=== PATIENT | female | born 1995 | race American Indian/Alaskan Native ===

== ENCOUNTER 2019-06-02 12:06 | Inpatient (IN) | payer MEDICAID ==
[2019-06-02] MEDS ORDERED: MINERAL OIL PO PRN ×2 (12:56→22:00)
[2019-06-02] MEDS ORDERED: AMPICILLIN/NS 2 GM/100 ML 2 GM/100 ML BAG IV ONE (12:56)
[2019-06-02] MEDS ORDERED: ZOFRAN IV PRN ×2 (12:56→20:37)
[2019-06-02] MEDS ORDERED: STADOL IV PRN (12:56)
[2019-06-02] MEDS ORDERED: BRETHINE SUB-Q PRN ×2 (12:56→14:06)
[2019-06-02] MEDS ORDERED: XYLOCAINE 2% INFILTRATI ONE ×2 (12:56→14:06)
[2019-06-02] MEDS ORDERED: NARCAN 0.4 MG/1 ML IV PRN (12:56)
[2019-06-02] MEDS ORDERED: PHENERGAN PO PRN ×2 (12:56→20:37)
[2019-06-02] MEDS ORDERED: BRETHINE IVP PRN ×2 (12:56→14:06)
[2019-06-02] MEDS ORDERED: SUBLIMAZE IV PRN (12:56)
[2019-06-02] MEDS ORDERED: PITOCin/NS 30 UNIT/500ML 30 UNITS/500 ML BAG IV SCH ×4 (13:00→15:00)
[2019-06-02] MEDS ORDERED: PITOCin/NS 20 UNIT/1000ML DRIP 20 UNITS/1,000 ML BAG IV SCH ×3 (13:00→21:00)
[2019-06-02] MEDS ORDERED: LACTATED RINGERS 1,000 ML IV SCH ×2 (13:00→15:00)
--- NOTE | 2019-06-02 13:05 | History and Physical Report ---
History of Present Illness Date of examination: 06/02/19 Date of admission: 06/02/19 12:06 Chief complaint: grossly rupture this am History of present illness: This is a 23 yo at 39 weeks EDC 06/08/19 here for grossly rupture of fluid clear. She is apatietn of [employer] with hx of b/l hearing aids, asthma and glucose intolerance. Past History Past Medical History: other (Bilateral hearing aids ) Family/Genetic History: hypertension, cancer (breast) - Obstetrical History Expected Date of Delivery: 06/08/19 Actual Gestation: 39 Week(s) 1 Day(s) : 2 Para: 1 Hx # Term Pregnancies: 1 Number of Pregnancies: 0 Spontaneous Abortions: 0 Induced : 0 Number of Living Children: 1 Review of Systems All systems: negative - Vital Signs Vital signs: Vital Signs Pulse BP 80 113/77 06/02/19 12:39 06/02/19 12:39 Temp Pulse Resp BP Pulse Ox 80 113/77 06/02/19 12:39 06/02/19 12:39 - Physical Exam Breasts: Positive: normal Cardiovascular: Regular rate, Normal S1 Lungs: Positive: Clear to auscultation, Normal air movement Abdomen: Positive: normal appearance, soft, normal bowel sounds. Negative: distention, tenderness, guarding Genitourinary (Female): Positive: normal external genitalia, normal perenium Vagina: Positive: normal moisture Uterus: Positive: normal size Anus/Rectum: Positive: normal perianal skin Extremities: Positive: normal Deep Tendon Reflex Grade: Normal +2 - Obstetrical FHR: category 1 Cervical Dilatation: 3 Cervical Effacement Percentage: 70 station: -3 Uterine Contraction Pattern: Irregular Uterine Tone Measurement Phase: Contraction Uterine Contraction Intensity: Mild Results All other labs normal. Assessment and Plan A/P IUP 39 weeks Prom clear GBS +- amp initiated will begin pitocin augmentation after second dose of amp
[2019-06-02 14:05] LABS: Hematocrit 40.2 % (30.3-42.9); Hemoglobin 13.9 gm/dl (10.1-14.3); Mean Corpuscular HGB Conc 35 % (30-34); Mean Corpuscular Volume 85 fl (79-97); Platelet Count 224 K/mm3 (140-440); Red Blood Count 4.74 M/mm3 (3.65-5.03); Red Cell Distribution Width 13.5 % (13.2-15.2)
[2019-06-02] MEDS ORDERED: AMPICILLIN/NS 1 GM/50 ML 1 GM/50 ML BAG IV SCH (17:00)
--- NOTE | 2019-06-02 20:04 | Anesthesia Consultation ---
Anesthesia Consult and Med Hx Date of service: 06/02/19 - Airway Anesthetic Teeth Evaluation: Good ROM Head & Neck: Adequate Mental/Hyoid Distance: Adequate Mallampati Class: Class II Intubation Access Assessment: Probably Good - Pulmonary Exam CTA: Yes - Cardiac Exam Cardiac Exam: RRR - Pre-Operative Health Status ASA Pre-Surgery Classification: ASA2 Proposed Anesthetic Plan: Epidural - Pulmonary Hx Smoking: No Hx Asthma: Yes Hx Respiratory Symptoms: No SOB: No COPD: No Home Oxygen Therapy: No Hx Pneumonia: No Hx Sleep Apnea: No - Cardiovascular System Hx Hypertension: No Hx Coronary Artery Disease: No Hx Heart Attack/AMI: No Hx Angina: No Hx Percutaneous Transluminal Coronary Angioplasty (PTCA): No Hx Cardia Arrhythmia: No Hx Pacemaker: No Hx Internal Defibrillator: No Hx Valvular Heart Disease: No Hx Heart Murmur: No Hx Peripheral Vascular Disease: No - Central Nervous System Hx Seizures: No CVA: No Hx Back Pain: No Hx Psychiatric Problems: No - Gastrointestinal Hx Ulcer: No Hx Gastroesophageal Reflux Disease: Yes - Endocrine Hx Renal Disease: No Hx End Stage Renal Disease: No Hx Cirrhosis: No Hx Liver Disease: No Hx Insulin Dependent Diabetes: No Hx Non-Insulin Dependent Diabetes: No Hx Thyroid Disease: No Hx Hypothyroidism: No Hx Hyperthyroidism: No - Hematic Hx Anemia: No Hx Sickle Cell Disease: No - Other Systems Hx Alcohol Use: No Hx Substance Use: No Hx Cancer: No Hx Obesity: No - Additional Comments Anesthesia Medical History Comments: [place] Hearing add left ear
[2019-06-02] MEDS ORDERED: PHENERGAN PR PRN (20:37)
[2019-06-02] MEDS ORDERED: MILK OF MAGNESIA PO PRN (20:37)
[2019-06-02] MEDS ORDERED: TYLENOL PO PRN (20:37)
[2019-06-02] MEDS ORDERED: PERCOCET 5/325 PO PRN (20:37)
[2019-06-02] MEDS ORDERED: DULCOLAX PR PRN (20:37)
[2019-06-02] MEDS ORDERED: TUCKS PAD TP PRN (20:37)
[2019-06-02] MEDS ORDERED: LANSINOH TP PRN (20:37)
[2019-06-02] MEDS ORDERED: BENADRYL PO PRN (20:37)
[2019-06-02] MEDS ORDERED: TORADOL IV PRN (20:37)
--- NOTE | 2019-06-02 20:41 | Procedure Note ---
OB Delivery Note - Delivery Date of Delivery: 06/02/19 Surgeon: COY GIMENEZ Estimated blood loss: 100cc - Vaginal Delivery presentation: vertex Delivery position: OA Intrapartum events: precipitous labor- <3hr Delivery augmentation: pitocin Route of delivery: Delivery placenta: spontaneous Delivery cord: 3 umbilical vessels Episiotomy: none Delivery laceration: none Anesthesia: none Delivery comments: Patient was noted to be c/c/+2 Patient commenced to pushing a viable female at 2001 with apgars 8 and 9. . Placenta delivered intact with three vessel cord at 2010. No lacerations noted. The weight of the baby 5 pounds 15 oz. EBL 100 cc. Patient tolerated procedure well. - Infant A at 1 minute: 8 at 5 minutes: 9 Infant Gender: Female (5 pounds 14 oz)
[2019-06-02] MEDS ORDERED: SODIUM CHLORIDE FLUSH SYRINGE 10 ML IV NR (21:00)
[2019-06-02] MEDS: IBUPROFEN PO SCH (21:30)
[2019-06-02] MEDS: COLACE PO SCH (22:00)
[2019-06-03] MEDS: NORCO 5/325 PO PRN ×3 (03:00→16:01)
[2019-06-03] MEDS ORDERED: M-M-R II VACCINE SUB-Q ONE (06:00)
[2019-06-03] MEDS ORDERED: BOOSTRIX IM ONE (06:00)
[2019-06-03] MEDS: IBUPROFEN PO SCH ×3 (06:00→20:11)
--- NOTE | 2019-06-03 09:29 | Progress Note ---
Assessment and Plan A/P PPD1 doing well VSS, HGB stable d/c home tomorrow Subjective - Subjective Date of service: 06/03/19 Principal diagnosis: Interval history: This is a 23 yo at 39 weeks EDC 06/08/19 here for grossly rupture of fluid clear. She is apatietn of [employer] with hx of b/l hearing aids, asthma and glucose intolerance. Patient reports: appetite normal, voiding normally, pain well controlled, flatus, ambulating normally [place]: doing well Objective - Vital Signs Latest vital signs: Vital Signs Temp Pulse Resp BP Pulse Ox 06/03/19 08:19 98.6 F 12 123/91 06/03/19 06:00 18 06/03/19 04:49 97.8 F 69 20 126/71 99 06/03/19 04:00 18 06/03/19 03:00 18 06/02/19 22:48 97.9 F 75 20 132/85 99 06/02/19 21:51 80 132/74 06/02/19 21:36 76 129/72 06/02/19 21:21 84 126/79 06/02/19 21:20 59 L 74 L 06/02/19 21:07 82 118/78 06/02/19 20:42 82 100 06/02/19 20:37 91 H 99 06/02/19 20:32 87 100 06/02/19 20:27 88 99 06/02/19 20:22 87 85 06/02/19 20:20 88 75 L 06/02/19 20:17 80 100 06/02/19 20:12 83 100 06/02/19 20:07 94 H 99 06/02/19 20:06 91 H 123/79 06/02/19 20:04 90 118/75 06/02/19 20:02 97 H 139/67 0 L 06/02/19 20:00 85 132/69 06/02/19 19:58 86 134/69 06/02/19 19:57 92 H 98 06/02/19 19:56 83 135/69 06/02/19 19:54 89 135/73 06/02/19 19:52 89 136/68 100 06/02/19 19:50 94 H 134/63 06/02/19 19:48 100 H 149/77 06/02/19 19:47 98 H 97 06/02/19 19:46 96 H 131/72 06/02/19 19:44 93 H 136/93 06/02/19 19:42 83 83 L 06/02/19 19:37 92 H 94 06/02/19 19:36 85 96 06/02/19 19:32 98 H 92 06/02/19 19:31 96 H 96 06/02/19 19:13 93 H 165/94 06/02/19 18:43 88 171/104 06/02/19 18:13 75 122/80 06/02/19 17:44 78 130/73 06/02/19 12:39 80 113/77 Intake and Output 06/02/19 06/03/19 06/03/19 23:59 07:59 15:59 Intake Total 11.600 480 Output Total 1800 Balance 11.600 -1320 Intake: IV 11.600 PITOCin/NS 30 UNIT/500ML 11.600 30 units In 500 ml @ 1 MILLIUNITS/MIN 1 mls/hr IV TITR SHENA Rx#:[id number] Intake, Free Water 480 Output: Urine 1800 Void 1800 Other: Total, Output Amount 1800 # Voids Void 1 Estimated Blood Loss 100 - Exam Breasts: Present: normal Cardiovascular: Present: Regular rate, Normal S1 Lungs: Present: Clear to auscultation, Normal air movement Abdomen: Present: normal appearance, soft, normal bowel sounds. Absent: distention, tenderness, guarding Uterus: Present: normal, firm, fundal height below umbilicus. Absent: bogginess, tenderness Extremities: Present: normal Deep Tendon Reflex Grade: Normal +2 - Labs Labs: Abnormal lab results 06/02/19 Range/Units 13:32 MCHC 35 H (30-34) %
--- NOTE | 2019-06-03 09:30 | Discharge Summary ---
Providers - Providers Date of Admission: 06/02/19 12:06 Date of discharge: 06/03/19 Attending physician: COY GIMENEZ MD Primary care physician: COY GIMENEZ MD Hospitalization Reason for admission: active labor, rupture of membranes Delivery: Episiotomy: none Laceration: none Incision: normal, dry, intact Other procedures: none complications: none Discharge diagnosis: IUP at term delivered baby: female Hospital course: unremarkable hopsital course Condition at discharge: Good Disposition: DC-01 TO HOME OR SELFCARE Plan - Provider Discharge Summary Activity: routine, no sex for 6 weeks, no strenuous exercise Diet: routine Instructions: routine Additional instructions: [] Smoking cessation referral if applicable(refer to patient education folder for contact #) [] Refer to [facility]'s [facility] Booklet Call your doctor immediately for: * Fever > 100.5 * Heavy vaginal bleeding ( >1 pad per hour) * Severe persistent headache * Shortness of breath * Reddened, hot, painful area to leg or breast * Drainage or odor from incision. * Keep incision clean and dry at all times and follow doctor's instructions regarding bathing/showering - Follow up plan Follow up: COY GIMENEZ MD [Primary Care Provider] - 06/29/19
[2019-06-03 09:37] LABS: Hematocrit 38.2 % (30.3-42.9); Hemoglobin 12.7 gm/dl (10.1-14.3)
[2019-06-03] MEDS: PRENATAL VITAMIN PO SCH (10:51)
[2019-06-03] MEDS: COLACE PO SCH ×2 (10:51→22:10)
[2019-06-04] MEDS: IBUPROFEN PO SCH ×2 (05:55→12:25)
[2019-06-04] MEDS: NORCO 5/325 PO PRN (05:56)
[2019-06-04] MEDS ORDERED: BOOSTRIX IM ONE (06:25)
[2019-06-04] MEDS: PRENATAL VITAMIN PO SCH (10:32)
[2019-06-04] MEDS: COLACE PO SCH (10:32)
[2019-06-04 16:58] VITALS: BP 133/97
== END 2019-06-04 17:25 | disposition home or self-care (01) | DRG 775 ==
LOC: LD 12:06 → OB 22:57
PROVIDERS: ADMIT Obstetrics & Gynecology; ATTEND Obstetrics & Gynecology
PROC: 10E0XZZ Delivery of Products of Conception, External Approach (ICD-10-PCS; principal; 2019-06-02)
PROC: 3E0234Z Introduction of Serum, Toxoid and Vaccine into Muscle, Percutaneous Approach (ICD-10-PCS; 2019-06-03)
DX: O62.3 Precipitate labor (principal); O99.52 Diseases of the respiratory system complicating childbirth; O99.62 Diseases of the digestive system complicating childbirth; K21.9 Gastro-esophageal reflux disease without esophagitis; O99.824 Streptococcus B carrier state complicating childbirth; J45.909 Unspecified asthma, uncomplicated; Z23 Encounter for immunization; Z3A.39 39 weeks gestation of pregnancy; Z37.0 Single live birth; Z82.49 Family history of ischemic heart disease and other diseases of the circulatory system; Z80.3 Family history of malignant neoplasm of breast
CPT/HCPCS: 36415; 85014; 85018; 85027; 86592; 86850; 86900; 86901; 90471; 90715; G0378; J0290; J0595; J2590; J7120

== ENCOUNTER 2020-01-30 02:14 | Emergency (ER) | payer MEDICAID ==
[2020-01-30 02:21] VITALS: BP 146/106
== END 2020-01-30 05:58 | disposition left against medical advice (07) ==
LOC: ED 02:14
DX: J02.9 Acute pharyngitis, unspecified (principal); Z53.21 Procedure and treatment not carried out due to patient leaving prior to being seen by health care provider

== ENCOUNTER 2020-01-30 14:18 | Emergency (ER) | payer MEDICAID ==
--- NOTE | 2020-01-30 14:35 | Emergency Department Report ---
ED ENT HPI - General Chief complaint: Sore Throat Stated complaint: SORE THROAT Time Seen by Provider: 01/30/20 14:32 Source: patient Mode of arrival: Ambulatory Limitations: No Limitations - History of Present Illness Initial comments: This is a 24-year-old female nontoxic well in appearance with no signs of distress presents to the ED with complaint of sore throat. Patient denies any drooling or hoarseness. Patient denies any other symptoms. Denies any fever, chills, headache, nausea, vomiting, chest pain or SOB. Denies any other complaints. MD complaint: sore throat -: week(s) Location: throat Severity: mild Severity scale (0 -10): 8 Quality: aching Consistency: constant Improves with: none Worsens with: swallowing Associated Symptoms: pain with swallowing, sore throat. denies: fever, cough, gum swelling, toothache, tinnitus, hearing loss, discharge from ear, rhinorrhea - Related Data Home Medications Medication Instructions Recorded Confirmed Last Taken Vitamin 1 cap PO DAILY 06/03/19 06/03/19 Unknown Previous Rx's Medication Instructions Recorded Last Taken Type Ibuprofen [Motrin] 600 mg PO Q8H PRN #30 tablet 06/03/19 Unknown Rx oxyCODONE /ACETAMINOPHEN [Percocet 1 tab PO Q6HR PRN #20 tablet 06/03/19 Unknown Rx 5/325] Amoxicillin [Amoxicillin TAB] 875 mg PO BID #20 tablet 01/30/20 Unknown Rx Ibuprofen [Motrin] 600 mg PO Q8H PRN #20 tablet 01/30/20 Unknown Rx Allergies Allergy/AdvReac Type Severity Reaction Status Date / Time No Known Allergies Allergy Unverified 06/02/19 13:46 ED Dental HPI - General Chief complaint: Sore Throat Stated complaint: SORE THROAT Time Seen by Provider: 01/30/20 14:32 Source: patient Mode of arrival: Ambulatory Limitations: No Limitations - Related Data Home Medications Medication Instructions Recorded Confirmed Last Taken Vitamin 1 cap PO DAILY 06/03/19 06/03/19 Unknown Previous Rx's Medication Instructions Recorded Last Taken Type Ibuprofen [Motrin] 600 mg PO Q8H PRN #30 tablet 06/03/19 Unknown Rx oxyCODONE /ACETAMINOPHEN [Percocet 1 tab PO Q6HR PRN #20 tablet 06/03/19 Unknown Rx 5/325] Amoxicillin [Amoxicillin TAB] 875 mg PO BID #20 tablet 01/30/20 Unknown Rx Ibuprofen [Motrin] 600 mg PO Q8H PRN #20 tablet 01/30/20 Unknown Rx Allergies Allergy/AdvReac Type Severity Reaction Status Date / Time No Known Allergies Allergy Unverified 06/02/19 13:46 ED Review of Systems ROS: Stated complaint: SORE THROAT Other details as noted in HPI Constitutional: denies: chills, fever Eyes: denies: eye pain, eye discharge, vision change ENT: throat pain. denies: ear pain Respiratory: denies: cough, shortness of breath, wheezing Cardiovascular: denies: chest pain, palpitations Endocrine: no symptoms reported Gastrointestinal: denies: abdominal pain, nausea, diarrhea Genitourinary: denies: urgency, dysuria, discharge Musculoskeletal: denies: back pain, joint swelling, arthralgia Skin: denies: rash, lesions Neurological: denies: headache, weakness, paresthesias Psychiatric: denies: anxiety, depression Hematological/Lymphatic: denies: easy bleeding, easy bruising ED Past Medical Hx - Past Medical History Previous Medical History?: Yes Hx Hypertension: No Hx Heart Attack/AMI: No Hx Diabetes: No Hx Deep Vein Thrombosis: No Hx Liver Disease: No Hx Renal Disease: No Hx Sickle Cell Disease: No Hx Seizures: No Hx Asthma: Yes Hx COPD: No - Surgical History Past Surgical History?: Yes Hx Pacemaker: No Hx Internal Defibrillator: No Additional Surgical History: tonsilectomy - Social History Smoking Status: Never Smoker Substance Use Type: None - Medications Home Medications: Home Medications Medication Instructions Recorded Confirmed Last Taken Type Ibuprofen [Motrin] 600 mg PO Q8H PRN #30 tablet 06/03/19 Unknown Rx Vitamin 1 cap PO DAILY 06/03/19 06/03/19 Unknown History oxyCODONE /ACETAMINOPHEN [Percocet 1 tab PO Q6HR PRN #20 tablet 06/03/19 Unknown Rx 5/325] Amoxicillin [Amoxicillin TAB] 875 mg PO BID #20 tablet 01/30/20 Unknown Rx Ibuprofen [Motrin] 600 mg PO Q8H PRN #20 tablet 01/30/20 Unknown Rx ED Physical Exam - General Limitations: No Limitations General appearance: alert, in no apparent distress - Head Head exam: Present: atraumatic, normocephalic - Expanded ENT Exam Expanded Ear exam: Present: normal external inspection Mouth exam: Present: normal external inspection, tongue normal. Absent: d rooling, trismus, muffled voice Teeth exam: Present: normal inspection Throat exam: Positive: tonsillar erythema, other (uvula midline). Negative: to nsillomegaly, tonsillar exudate, R peritonsillar mass, L peritonsillar mass - Neck Neck exam: Present: normal inspection, full ROM. Absent: tenderness, meningis mus, lymphadenopathy - Respiratory Respiratory exam: Present: normal lung sounds bilaterally. Absent: respiratory distress, wheezes, rales, rhonchi, stridor, chest wall tenderness, accessory muscle use, decreased breath sounds, prolonged expiratory - Cardiovascular Cardiovascular Exam: Present: regular rate, normal rhythm, normal heart sounds. Absent: bradycardia, tachycardia, irregular rhythm, systolic murmur, diastolic murmur, rubs, gallop - Extremities Exam Extremities exam: Present: normal inspection, full ROM - Back Exam Back exam: Present: normal inspection, full ROM - Neurological Exam Neurological exam: Present: alert, oriented X3, normal gait - Psychiatric Psychiatric exam: Present: normal affect, normal mood - Skin Skin exam: Present: warm, dry, intact, normal color. Absent: rash ED Course - Reevaluation(s) Reevaluation #1: 01/30/20 14:34 Patient is speaking in full sentences with no signs of distress noted. ED Medical Decision Making - Medical Decision Making Patient was instructed to Follow-up with a primary care doctor in 3-5 days or if symptoms worsen and continue return to emergency room as soon as possible. At time of discharge, the patient does not seem toxic or ill in appearance. No acute signs of distress noted. Patient agrees to discharge treatment plan of care. No further questions noted by the patient. Critical care attestation.: If time is entered above; I have spent that time in minutes in the direct care of this critically ill patient, excluding procedure time. ED Disposition Clinical Impression: Pharyngitis Qualifiers: Pharyngitis/tonsillitis etiology: unspecified etiology Qualified Code(s): J02.9 - Acute pharyngitis, unspecified Disposition: TO HOME OR SELFCARE Is pt being admited?: No Does the pt Need Aspirin: No Condition: Stable Instructions: Pharyngitis (ED) Additional Instructions: Follow-up with a primary care doctor in 3-5 days or if symptoms worsen and continue return to emergency room as soon as possible. Prescriptions: Amoxicillin [Amoxicillin TAB] 875 mg PO BID #20 tablet Ibuprofen [Motrin] 600 mg PO Q8H PRN #20 tablet PRN Reason: Pain/Fever Referrals: PRIMARY CAREMD [Referring] - 3-5 Days LINO CAMARENA MD [Staff Physician] - 3-5 Days [facility] [Outside] - 3-5 Days Forms: Work/School Release Form(ED)
[2020-01-30 14:40] VITALS: BP 154/89
== END 2020-01-30 16:17 | disposition home or self-care (01) ==
LOC: ED 14:18
DX: J02.9 Acute pharyngitis, unspecified (principal); J45.909 Unspecified asthma, uncomplicated; Z79.1 Long term (current) use of non-steroidal anti-inflammatories (NSAID); Z79.2 Long term (current) use of antibiotics; Z79.899 Other long term (current) drug therapy; Z98.890 Other specified postprocedural states
CPT/HCPCS: 99282

== ENCOUNTER 2020-10-10 12:57 | Emergency (ER) | payer MEDICAID ==
[2020-10-10 13:11] VITALS: BP 133/79
--- NOTE | 2020-10-10 14:02 | XRay Report ---
LEFT FOOT 3 VIEW(S) INDICATION / CLINICAL INFORMATION: left big toe, left 2nd toe after fall down stairs COMPARISON: None available. FINDINGS: BONES / JOINT(S): No acute fracture or subluxation. No significant arthritis. SOFT TISSUES: No significant abnormality. ADDITIONAL FINDINGS: None. IMPRESSION: No acute osseous findings of the left foot. Signer Name: Edgardo Oliveros MD Signed: 10/10/2020 1:57 PM Workstation Name: [id number]
--- NOTE | 2020-10-10 15:03 | Emergency Department Report ---
ED Extremity Problem HPI - General Chief complaint: Extremity Injury, Lower Stated complaint: LT BIG TOE SWOLLEN Time Seen by Provider: 10/10/20 13:30 Source: patient Mode of arrival: Ambulatory Limitations: Physical Limitation - History of Present Illness Initial comments: Patient is a 24-year-old female presents emergency room with complaints of left big toe pain, swelling, ecchymosis that began 2 days ago. She states that she accidentally misstepped and fell down the steps inside of her home. She states since then she has had pain and swelling. She states that she also has pain to the second left toe. She has been ambulatory. She denies any numbness or weakness. She denies any prior injury. No past medical history. No allergies medications. She states she is currently on her menstrual cycle. - Related Data Home Medications Medication Instructions Recorded Confirmed Last Taken Vitamin 1 cap PO DAILY 06/03/19 06/03/19 Unknown Previous Rx's Medication Instructions Recorded Last Taken Type Ibuprofen [Motrin] 600 mg PO Q8H PRN #30 tablet 06/03/19 Unknown Rx oxyCODONE /ACETAMINOPHEN [Percocet 1 tab PO Q6HR PRN #20 tablet 06/03/19 Unknown Rx 5/325] Amoxicillin [Amoxicillin TAB] 875 mg PO BID #20 tablet 01/30/20 Unknown Rx Ibuprofen [Motrin] 600 mg PO Q8H PRN #20 tablet 01/30/20 Unknown Rx Allergies Allergy/AdvReac Type Severity Reaction Status Date / Time No Known Allergies Allergy Verified 10/10/20 13:10 ED Review of Systems ROS: Stated complaint: LT BIG TOE SWOLLEN Other details as noted in HPI Comment: All other systems reviewed and negative ED Past Medical Hx - Past Medical History Hx Hypertension: No Hx Heart Attack/AMI: No Hx Diabetes: No Hx Deep Vein Thrombosis: No Hx Liver Disease: No Hx Renal Disease: No Hx Sickle Cell Disease: No Hx Seizures: No Hx Asthma: Yes Hx COPD: No Additional medical history: hearing impaired - Surgical History Hx Pacemaker: No Hx Internal Defibrillator: No Additional Surgical History: tonsilectomy - Social History Smoking Status: Current Every Day Smoker Substance Use Type: Alcohol - Medications Home Medications: Home Medications Medication Instructions Recorded Confirmed Last Taken Type Ibuprofen [Motrin] 600 mg PO Q8H PRN #30 tablet 06/03/19 Unknown Rx Vitamin 1 cap PO DAILY 06/03/19 06/03/19 Unknown History oxyCODONE /ACETAMINOPHEN [Percocet 1 tab PO Q6HR PRN #20 tablet 06/03/19 Unknown Rx 5/325] Amoxicillin [Amoxicillin TAB] 875 mg PO BID #20 tablet 01/30/20 Unknown Rx Ibuprofen [Motrin] 600 mg PO Q8H PRN #20 tablet 01/30/20 Unknown Rx ED Physical Exam - General Limitations: Physical Limitation General appearance: alert, in no apparent distress - Head Head exam: Present: atraumatic, normocephalic - ENT ENT exam: Present: mucous membranes moist - Respiratory Respiratory exam: Absent: respiratory distress, accessory muscle use - Extremities Exam Extremities exam: Present: other (ttp, edema, and ecchymosis present to the left big toe, ttp to the left second toe, FROM of the left toes, foot, and ankle, discomfort with flexion of the big toe, no deformity, neurovascularly intact) - Neurological Exam Neurological exam: Present: alert, oriented X3 - Psychiatric Psychiatric exam: Present: normal affect, normal mood - Skin Skin exam: Present: warm, dry, intact ED Course Vital Signs 10/10/20 13:09 Temperature 98.2 F Pulse Rate 77 Respiratory 18 Rate Blood Pressure 133/79 O2 Sat by Pulse 97 Oximetry ED Medical Decision Making - Radiology Data Radiology results: report reviewed Ordering Physician: LEWIS LIN Date of Service: 10/10/20 Procedure(s): XR foot 3+V LT Accession Number(s): [id number] cc: LEWIS LIN Fluoro Time In Minutes: LEFT FOOT 3 VIEW(S) INDICATION / CLINICAL INFORMATION: left big toe, left 2nd toe after fall down stairs COMPARISON: None available. FINDINGS: BONES / JOINT(S): No acute fracture or subluxation. No significant arthritis. SOFT TISSUES: No significant abnormality. ADDITIONAL FINDINGS: None. IMPRESSION: No acute osseous findings of the left foot. Signer Name: Omari Oliveros MD Signed: 10/10/2020 1:57 PM Workstation Name: [id number] Transcribed By: JS Dictated By: OMARI BEY MD Electronically Authenticated By: OMARI BEY MD Signed Date/Time: 10/10/20 1356 DD/ 135 TD/TT: - Medical Decision Making Patient is a 24-year-old female presents emergency room with complaints of left big toe pain, swelling, ecchymosis that began 2 days ago. She states that she accidentally misstepped and fell down the steps inside of her home. She states since then she has had pain and swelling. She states that she also has pain to the second left toe. She has been ambulatory. She denies any numbness or weakness. She denies any prior injury. No past medical history. No allergies medications. She states she is currently on her menstrual cycle. Vitals are normal. On exam: ttp, edema, and ecchymosis present to the left big toe, ttp to the left second toe, FROM of the left toes, foot, and ankle, discomfort with flexion of the big toe, no deformity, neurovascularly intact. XR left foot:No acute osseous findings of the left foot. Discussed all results with patient and answered questions. Patient placed in postop shoe and remained neurovascularly intact. advised pt May alternate Tylenol and ibuprofen as needed for discomfort. May use ice for 15 minutes at a time, rest, elevation of the leg. Follow-up with orthopedic doctor. Follow-up with your primary care doctor. Return to emergency room for any new or worsening symptoms. - Differential Diagnosis Strain, sprain, fracture, dislocation, contusion, tendinitis Critical care attestation.: If time is entered above; I have spent that time in minutes in the direct care of this critically ill patient, excluding procedure time. ED Disposition Clinical Impression: Toe pain Qualifiers: Laterality: left Qualified Code(s): M79.675 - Pain in left toe(s) Toe sprain Qualifiers: Encounter type: initial encounter Qualified Code(s): S93.509A - Unspecified sprain of unspecified toe(s), initial encounter Toe contusion Qualifiers: Encounter type: initial encounter Toe: great toe Damage to nail status: without damage Laterality: left Qualified Code(s): S90.112A - Contusion of left great toe without damage to nail, initial encounter Disposition: DC- TO HOME OR SELFCARE Is pt being admited?: No Does the pt Need Aspirin: No Condition: Stable Instructions: Foot Contusion, [id number] Additional Instructions: May alternate Tylenol and ibuprofen as needed for discomfort. May use ice for 15 minutes at a time, rest, elevation of the leg. Follow-up with orthopedic doctor. Follow-up with your primary care doctor. Return to emergency room for any new or worsening symptoms. Referrals: [facility] [Provider Group] - 2-3 Days SHEA KELSEY MD [Staff Physician] - 2-3 Days LINO CAMARENA MD [Staff Physician] - 2-3 Days [facility] [Provider Group] - 2-3 Days Forms: Work/School Release Form(ED) Time of Disposition: 15:02 Print Language: CITIZEN OF [place]
== END 2020-10-10 15:29 | disposition home or self-care (01) ==
LOC: ED 12:57
DX: S93.505A Unspecified sprain of left lesser toe(s), initial encounter (principal); J45.909 Unspecified asthma, uncomplicated; F17.200 Nicotine dependence, unspecified, uncomplicated; Z90.89 Acquired absence of other organs; Z79.1 Long term (current) use of non-steroidal anti-inflammatories (NSAID); Z79.2 Long term (current) use of antibiotics; Z79.899 Other long term (current) drug therapy; W10.9XXA Fall (on) (from) unspecified stairs and steps, initial encounter; Y93.89 Activity, other specified; Y92.009 Unspecified place in unspecified non-institutional (private) residence as the place of occurrence of the external cause; Y99.8 Other external cause status
CPT/HCPCS: 99283

== ENCOUNTER 2020-11-09 22:03 | Emergency (ER) | payer MEDICAID | END 2020-11-09 22:05 | disposition left against medical advice (07) | LOC: ED 22:03 | DX: Z04.1 Encounter for examination and observation following transport accident (principal); Z53.21 Procedure and treatment not carried out due to patient leaving prior to being seen by health care provider ==